=== PATIENT | female | born 1955 | race American Indian/Alaskan Native ===

== ENCOUNTER 2017-08-20 13:36 | Outpatient (CLI) | payer MEDICAID ==
--- NOTE | 2017-08-20 16:22 | Mammography Report ---
BILATERAL DIGITAL SCREENING MAMMOGRAM with CAD: 08/20/17 CLINICAL: Routine screening. COMPARISON:05/16/14 FINDINGS: The breasts are almost entirely fatty. No mass, architectural distortion or suspicious calcifications. IMPRESSION: No mammographic evidence of malignancy. BI-RADS CATEGORY: 1 - - Negative RECOMMENDATION: Routine mammographic screening in one year. COMMENT: Patient follow-up letters are generated by our [employer] application.
== END 2017-08-20 13:37 | disposition home or self-care (01) ==
LOC: SPVWC 13:36
PROVIDERS: ATTEND Family Medicine
DX: Z12.31 Encounter for screening mammogram for malignant neoplasm of breast (principal)
CPT/HCPCS: 77067

== ENCOUNTER 2020-11-01 03:12 | Emergency (ER) | payer MEDICAID ==
--- NOTE | 2020-11-01 10:10 | Emergency Department Report ---
HPI - General Chief Complaint: Tube Replacement Time Seen by Provider: 11/01/20 09:58 - HPI HPI: This is a 65-year-old -Turk[place] female presents to the emergency department after she accidentally cut the tubing of her peritoneal dialysis catheter last night around 1:30 AM. The patient says that she believes that she has an infection of the catheter after seeing her cleaning specialist 2 days ago, after seeing her cleaning specialist 2 days ago, Dr. Drummond. The patient says that a prescription for antibiotics was supposed to be called in for her but the pharmacy says they have not yet received it. Last night, the patient was cutting some of the gauze and tape that she had around the dialysis catheter when she accidentally cut through the tubing. Because of this, the patient did not receive her dialysis last night. She gets nightly peritoneal dialysis. She also has a history of hypertension. She believes that the peritoneal dialysis catheter was previously placed at [facility]. The patient does not appear to have previously been to our emergency department. She denies any fever, nausea, vomiting, abdominal or back pain. ED Past Medical Hx - Past Medical History Previous Medical History?: Yes Hx Hypertension: Yes Hx Renal Disease: Yes (Peritoneal dialysis) - Surgical History Past Surgical History?: Yes Additional Surgical History: Peritoneal dialysis catheter - Social History Smoking Status: Former Smoker Substance Use Type: None ED Review of Systems ROS: Stated complaint: DIALYSIS TUBE CUT/STOMACH INFECTION Other details as noted in HPI Comment: All other systems reviewed and negative Constitutional: denies: chills, fever Eyes: denies: eye pain, vision change ENT: denies: ear pain, throat pain Respiratory: denies: cough, shortness of breath Cardiovascular: denies: chest pain, palpitations Gastrointestinal: denies: abdominal pain, nausea, vomiting Genitourinary: denies: dysuria, discharge Musculoskeletal: denies: back pain, arthralgia Skin: denies: rash, lesions Neurological: denies: headache, weakness Physical Exam - Physical Exam Vital Signs: Vital Signs 11/01/20 04:09 Temperature 98.7 F Pulse Rate 80 Respiratory 16 Rate Blood Pressure 180/92 O2 Sat by Pulse 98 Oximetry Physical Exam: GENERAL: The patient is well-developed well-nourished. HENT: Normocephalic. Atraumatic. Patient has moist mucous membranes. EYES: Extraocular motions are intact. NECK: Supple. Trachea is midline. CHEST/LUNGS: Clear to auscultation. There is no respiratory distress noted. HEART/CARDIOVASCULAR: Regular. There is no tachycardia. There is no murmur. ABDOMEN: Abdomen is soft, nontender. Patient has normal bowel sounds. There is no abdominal distention. There is a peritoneal dialysis catheter seen in the right middle to lower abdomen. The tubing has been cut about 3 to 4 inches from the skin. No surrounding erythema. No bleeding or purulent discharge seen. SKIN: Skin is warm and dry. NEURO: The patient is awake, alert, and oriented. The patient is cooperative. The patient has no focal neurologic deficits. Normal speech. MUSCULOSKELETAL: There is no tenderness or deformity. There is no limitation range of motion. ED Course Vital Signs 11/01/20 04:09 Temperature 98.7 F Pulse Rate 80 Respiratory 16 Rate Blood Pressure 180/92 O2 Sat by Pulse 98 Oximetry - Consultations Consultation #1: 11/01/20 10:40 I spoke to the patient's cleaning specialist, Dr. Bonner, who says that the peritoneal dialysis catheter tubing can be fixed in their office by the PD nurse and he will have the nurse call the patient to set this up. 11/01/20 11:06 The cleaning specialist called back and says that the patient should go directly to the peritoneal dialysis clinic. He wants the patient to receive a dose of Ancef and if available get a soft blue clip to be placed on the catheter proximally from the area where the catheter was cut. ED Medical Decision Making - Medical Decision Making This patient presents with the complaint of accidentally cutting the tubing of her peritoneal dialysis catheter. She had mentioned something about concern for infection but I do not see any evidence of infection at this time. There is no purulent discharge seen around the tubing, nor within the tubing. No surrounding erythema. The patient is afebrile. The abdomen is soft, nondistended and nontoxic in appearance. As per the consultation section, I spoke with the patient's cleaning specialist. He asked for the patient to receive a dose of Ancef, which was given. He says that the dialysis catheter can be fixed at the peritoneal dialysis clinic by the PD nurse as long as there is a least 1 inch of tubing coming from the abdomen. The patient has at least 3 inches. He did not require any blood work or any type of clearance. The patient was discharged directly to the peritoneal dialysis clinic. She has some hypertension, but otherwise her vital signs are reassuring including being afebrile. Critical Care Time: No Critical care attestation.: If time is entered above; I have spent that time in minutes in the direct care of this critically ill patient, excluding procedure time. ED Disposition Clinical Impression: Peritoneal dialysis catheter dysfunction Qualifiers: Encounter type: initial encounter Qualified Code(s): T85.611A - Breakdown (mechanical) of intraperitoneal dialysis catheter, initial encounter Hypertension Qualifiers: Hypertension type: renovascular hypertension Qualified Code(s): I15.0 - Renovascular hypertension Disposition: DC-01 TO HOME OR SELFCARE Is pt being admited?: No Condition: Stable Instructions: Hypertension, Adult, Hypertension (ED) Additional Instructions: Go directly from the emergency department to the peritoneal dialysis clinic. The peritoneal dialysis nurse will fix the catheter for you. Do not go home or go to get something to eat. Go directly to the clinic. Referrals: Clinic, Peritoneal Dialysis [Other] - MARCEL Time of Disposition: 11:08
[2020-11-01] MEDS ORDERED: ceFAZolin 1 GM VIAL IM ONE (10:56)
[2020-11-01 14:01] VITALS: BP 161/82
== END 2020-11-01 11:30 | disposition home or self-care (01) ==
LOC: ED 03:12
DX: T85.611A Breakdown (mechanical) of intraperitoneal dialysis catheter, initial encounter (principal); I10 Essential (primary) hypertension; Z79.899 Other long term (current) drug therapy
CPT/HCPCS: 96372; 99282; J0690